=== PATIENT | female | born 1985 | race Caucasian/White ===

== ENCOUNTER → 2017-12-19 | Outpatient (CLI) | payer OTHER ==
[~2017-12-19] MED LIST: ENDOCET 5-3251 EACH PO; IBUPROFEN800 MG PO; NORCO 5/3251 TABLET PO; ONDANSETRON ODT8 MG; PAIN RELIEF500 M1 PO; PERCOCET 5/31 TABLET PO; PRENATAL TABLE1 EAC3; TYLENOL REGULA325 MG PO; ZOFRAN4 MG PO
== END | disposition home or self-care (01) ==
LOC: CDC 09:13
DX: Z01.810 Encounter for preprocedural cardiovascular examination (principal); Q66.52 Congenital pes planus, left foot; M20.12 Hallux valgus (acquired), left foot; M20.22 Hallux rigidus, left foot; M25.572 Pain in left ankle and joints of left foot
CPT/HCPCS: 93000